=== PATIENT | male | born 1990 | race Caucasian/White ===

== ENCOUNTER → 2018-07-28 10:14 | Outpatient (REF) | payer OTHER, SELFPAY ==
[2018-07-28 21:18] LABS: Anion Gap 5.7 mmol/L (3-11); BUN 20 mg/dL (7-18); CO2 28.3 mmol/L (21.0-32.0); CREATININE 0.81 mg/dL (0.70-1.30); Calcium 8.5 mg/dL (8.5-10.1); Chloride 102 mmol/L (98-107); Glucose 92 mg/dL (70-100); Potassium 4.4 mmol/L (3.5-5.1); Sodium 136 mmol/L (136-145)
== END ==
LOC: NCHCN 10:14
PROVIDERS: PCP Nurse Practitioner Family; Visit Provider Physician Assistant Medical
DX: I10 Essential (primary) hypertension (principal); F90.0 Attention-deficit hyperactivity disorder, predominantly inattentive type
CPT/HCPCS: 80048

== ENCOUNTER 2019-03-30 09:50 | Outpatient (REF) | payer OTHER, SELFPAY ==
[2019-03-30 21:48] LABS: Anion Gap 8.1 mmol/L (3-11); BUN 12 mg/dL (7-18); CO2 29.9 mmol/L (21.0-32.0); CREATININE 0.76 mg/dL (0.70-1.30); Chloride 104 mmol/L (98-107); Glucose 100 mg/dL (70-100); Potassium 4.8 mmol/L (3.5-5.1); Sodium 142 mmol/L (136-145)
[2019-03-30 22:01] LABS: Calcium 9.3 mg/dL (8.5-10.1)
== END 2019-03-30 10:10 ==
LOC: NCHCN 09:50
PROVIDERS: PCP Nurse Practitioner Family; Visit Provider Nurse Practitioner Family
DX: I10 Essential (primary) hypertension (principal)
CPT/HCPCS: 80048

== ENCOUNTER 2019-08-24 09:39 | Outpatient (REF) | payer OTHER, SELFPAY ==
[2019-08-24 21:12] LABS: Calculated LDL 113 mg/dL; Cholesterol 177 mg/dL (50-200); Glucose 102 mg/dL (70-100); HDL Cholesterol 30 mg/dL (40-60); Triglyceride 174 mg/dL (30-150)
== END 2019-08-24 09:59 ==
LOC: NCHCN 09:39
PROVIDERS: PCP Nurse Practitioner Family; Visit Provider Nurse Practitioner Family
DX: I10 Essential (primary) hypertension (principal); R73.9 Hyperglycemia, unspecified; F90.0 Attention-deficit hyperactivity disorder, predominantly inattentive type; Z83.49 Family history of other endocrine, nutritional and metabolic diseases
CPT/HCPCS: 80061; 82947

== ENCOUNTER 2021-03-20 13:45 | Outpatient (REF) | payer OTHER, SELFPAY ==
[2021-03-20 15:13] LABS: Anion Gap 7.5 mmol/L (3-11); BUN 18 mg/dL (7-18); CO2 25.5 mmol/L (21.0-32.0); CREATININE 0.8 mg/dL (0.70-1.30); Calcium 8.8 mg/dL (8.5-10.1); Calculated LDL 111 mg/dL (<100); Chloride 107 mmol/L (98-107); Cholesterol 178 mg/dL (<200); Glucose 104 mg/dL (74-106); HDL Cholesterol 31 mg/dL (40-60); Potassium 4.5 mmol/L (3.5-5.1); Sodium 140 mmol/L (136-145); Triglyceride 183 mg/dL (<150)
== END 2021-03-20 13:46 | disposition home or self-care (01) ==
LOC: NCHCN 13:45
PROVIDERS: PCP Nurse Practitioner Family; Visit Provider Nurse Practitioner Family
DX: I10 Essential (primary) hypertension (principal); F90.0 Attention-deficit hyperactivity disorder, predominantly inattentive type; Z83.430 Family history of elevated lipoprotein(a)
CPT/HCPCS: 80048; 80061

== ENCOUNTER 2021-12-25 16:56 | Outpatient (REF) | payer OTHER, SELFPAY ==
[2021-12-25 21:00] LABS: Anion Gap 8.6 mmol/L (3-11); BUN 15 mg/dL (7-18); CO2 29.4 mmol/L (21.0-32.0); CREATININE 0.8 mg/dL (0.70-1.30); Calcium 8.8 mg/dL (8.5-10.1); Calculated LDL 97 mg/dL (<100); Chloride 103 mmol/L (98-107); Cholesterol 199 mg/dL (<200); Glucose 82 mg/dL (74-106); HDL Cholesterol 29 mg/dL (40-60); Potassium 4.4 mmol/L (3.5-5.1); Sodium 141 mmol/L (136-145); Triglyceride 366 mg/dL (<150)
== END 2021-12-25 16:57 | disposition home or self-care (01) ==
LOC: NCHCN 16:56
PROVIDERS: PCP Nurse Practitioner Family; Visit Provider Nurse Practitioner Family
DX: Z00.00 Encounter for general adult medical examination without abnormal findings (principal); I10 Essential (primary) hypertension
CPT/HCPCS: 80048; 80061